=== PATIENT | male | born 1990 | race Caucasian/White ===

== ENCOUNTER 2019-05-20 17:04 | Emergency (ER) | payer OTHER | END 2019-05-20 18:29 | disposition home or self-care (01) | LOC: JERFT 17:04 ==

== ENCOUNTER 2019-08-10 11:24 | Emergency (ER) | payer OTHER | END 2019-08-10 14:10 | disposition home or self-care (01) | LOC: JER 11:24 ==

== ENCOUNTER 2020-01-05 18:59 | Emergency (ER) | payer OTHER ==
[2020-01-05] MEDS ORDERED: IBUPROFEN 600 MG TABLET (FP) PO ONE ×2 (19:38→20:00)
--- NOTE | 2020-01-05 19:38 | PDOC ---
Rapid Medical Evaluation Time Seen by Provider: 01/05/20 19:37 Medical Evaluation: Allergies Allergy/AdvReac Type Severity Reaction Status Date / Time No Known Allergies Allergy Verified 08/10/19 11:30 01/05/20 19:37 This patient had rapid medical evaluation in triage cc:dizziness HPI: Patient reports fever, dizziness and bodyaches since yesterday. Denies cold symptoms PE: ejected sclera clear lungs bilaterally no pedal edema Orders: antipyretic This patient will proceed to ed for further evaluation. Discharge Disposition - Diagnosis Fever - Referrals - Patient Instructions - Post Discharge Activity
[2020-01-05 19:39] VITALS: BP 127/75; PULSE 110; TEMP 102.5; BMI 25.9
--- NOTE | 2020-01-05 19:54 | PDOC ---
History of Present Illness - General Chief Complaint: Cold Symptoms Stated Complaint: BACK PAIN / FEVER Time Seen by Provider: 01/05/20 19:37 - History of Present Illness Initial Comments: 01/05/20 19:53 29-year-old male without comorbidities presents for evaluation of flulike symptoms x1 day Past History - Past Medical History Allergies/Adverse Reactions: Allergies Allergy/AdvReac Type Severity Reaction Status Date / Time No Known Allergies Allergy Verified 08/10/19 11:30 Home Medications: Ambulatory Orders Ibuprofen [Motrin -] 600 mg PO TID PRN #21 tablet 08/10/19 Sulfamethoxazole/Trimethoprim [Bactrim Ds -] 1 tab PO BID #13 tablet 08/10/19 COPD: No - Psycho Social/Smoking Cessation Hx Smoking History: Current some day smoker Have you smoked in the past 12 months: No Information on smoking cessation initiated: No Hx Alcohol Use: No Drug/Substance Use Hx: No Review of Systems - Review of Systems Constitutional: Yes: Fever HEENTM: Yes: Nose Congestion Respiratory: Yes: Cough *Physical Exam - Vital Signs Last Vital Signs Temp Pulse Resp BP Pulse Ox 102.5 F H 110 H 19 127/75 97 01/05/20 19:35 01/05/20 19:35 01/05/20 19:35 01/05/20 19:35 01/05/20 19:35 - Physical Exam 01/05/20 19:53 GENERAL: The patient is awake, alert, and fully oriented, in no acute distress. HEAD: Normal with no signs of trauma. EYES: sclera anicteric, conjunctiva clear. ENT: Ears normal tympanic membranes normal oropharynx clear uvula midline NECK: Normal range of motion LUNGS: Breath sounds equal, clear to auscultation bilaterally. No wheezes, and no crackles. HEART: S1 and S2 without murmur, rub or gallop. ABDOMEN: Soft, nontender, normoactive bowel sounds. No guarding, no rebound. No masses. EXTREMITIES: Normal range of motion, no edema. No clubbing or cyanosis. No cords, erythema, or tenderness. NEUROLOGICAL: Cranial nerves II through XII grossly intact. PSYCH: Normal mood, normal affect. SKIN: Warm, Dry, normal turgor, no rashes or lesions noted. Medical Decision Making - Medical Decision Making 01/05/20 19:53 Tamiflu for presumptive flu Discharge - Discharge Information Problems reviewed: Yes Clinical Impression/Diagnosis: Fever, Influenza Condition: Stable Disposition: HOME - Admission No - Follow up/Referral Referrals: Real Zurita MD [Primary Care Provider] - - Patient Discharge Instructions Additional Instructions: Tylenol Motrin as directed for fever and body aches. Return to the emergency room for worsening symptoms and without fail follow-up with your primary care physician in 1 to 2 days for further evaluation and treatment options. Please take the Tamiflu as directed. - Post Discharge Activity
== END 2020-01-05 20:07 | disposition home or self-care (01) ==
LOC: JERFT 18:59
DX: J11.1 Influenza due to unidentified influenza virus with other respiratory manifestations (principal); Z72.0 Tobacco use
CPT/HCPCS: 99283-25

== ENCOUNTER 2022-11-15 21:43 | Emergency (ER) | payer OTHER ==
[2022-11-15 21:54] VITALS: BP 136/86; PULSE 91; RESP 19; TEMP 98.6; BMI 26.2
[2022-11-16] MEDS ORDERED: IBUPROFEN 600 MG TABLET (FP) PO ONE ×2 (00:34→00:58)
[2022-11-16] MEDS ORDERED: METHOCARBAMOL 500 MG TABLET PO ONE (00:35)
[2022-11-16] MEDS ORDERED: METHOCARBAMOL 500 MG TABLET ONE (00:57)
== END 2022-11-16 01:19 | disposition home or self-care (01) ==
LOC: JER 21:43
DX: M25.512 Pain in left shoulder (principal); V49.40XA Driver injured in collision with unspecified motor vehicles in traffic accident, initial encounter
CPT/HCPCS: 71101-TC-LT-FY; 73030-TC-LT-FY; 73060-TC-LT-FY; 99284-25